=== PATIENT | male | born 1965 | race Caucasian/White ===

== ENCOUNTER 2024-10-07 13:48 | Emergency (ER) | payer MEDICARE, SELFPAY ==
[2024-10-07 13:50] VITALS: BP 152/83
[2024-10-07 14:12] LABS: % Basophils 0.8 % (0-2); % Eosinophils 9.1 % (0-6); % Immature Granulocytes 0.3 % (0-0.5); % Lymphocytes 11.8 % (20.5-51.1); % Monocytes 9.3 % (1.7-9.3); % Neutrophils 68.7 % (42.2-75.2); Absolute Basophils 0.1 10^3/uL (0-0.2); Absolute Eosinophils 0.7 10^3/uL (0-0.7); Absolute Lymphocytes 0.9 10^3/uL (1.2-3.4); Absolute Monocytes 0.7 10^3/uL (0.1-0.6); Absolute Neutrophils 5.1 10^3/uL (1.4-6.5); Hematocrit 42.4 % (39.0-52.0); Hemoglobin 14.8 g/dL (13.0-18.0); Mean Corp Hgb Conc. 34.9 g/dL (33.0-37.0); Mean Corpuscular Hgb 29.9 pg (27.0-31.0); Mean Corpuscular Volume 85.7 fL (80.0-94.0); Mean Platelet Volume 8.5 fL (7.4-10.4); Nucleated Red Blood Cells % 0 % (-); Platelet Count 297 10^3/uL (130-400); Red Blood Cell Count 4.95 10^6/uL (4.70-6.10); Red Cell Dist. Width 12.2 % (11.5-14.5); White Blood Cell Count 7.4 10^3/uL (4.8-10.8)
[2024-10-07 14:22] LABS: ALT (SGPT) 18 U/L (0-50); AST (SGOT) 25 U/L (17-59); Albumin 3.9 g/dl (3.5-5.0); Alkaline Phosphatase 63 U/L (38-126); Blood Urea Nitrogen 7 mg/dl (9-20); Calcium 8.6 mg/dl (8.4-10.2); Carbon Dioxide 22 mmol/L (22-30); Chloride 109 mmol/L (98-107); Glucose 153 mg/dl (70-99); Potassium 3.9 mmol/L (3.5-5.1); Sodium 138 mmol/L (135-145); Total Bilirubin 0.5 mg/dl (0.2-1.3); Total Protein 6.5 g/dl (6.3-8.2); eGFR > 60.00
[2024-10-07 14:24] LABS: COVID-19 Antigen Negative (Negative)
[2024-10-07 15:26] VITALS: BP 125/77
[2024-10-07 16:30] VITALS: BP 137/79
[2024-10-07 16:36] VITALS: BMI 23.8
[2024-10-07 17:00] VITALS: BP 144/85
--- NOTE | 2024-10-07 17:32 | ED.GENMED ---
History of Present Illness
General
Chief Complaint: Cold/Flu/URI Symptoms
Source: patient
Exam Limitations: none
Time Seen by Provider: 10/07/24 17:12
History of Present Illness
History of Present Illness:
See MDM
Past History
Past History
ED Past Medical History: None
ED Past Surgical History: Other (Rhinoplasty)
Social History
Tobacco: Smoker (One pack a day)
Alcohol: None
Drug: None
Personal:
Living: with family
Phy Exam
Physical Exam
Physical Exam:
See MDM
Course
Orders/Labs/Results
Orders:
Orders
10/07/24 14:00
COVID-19 Antigen Urgent
Source: Nasal Swab
Complete Blood Count/With Diff Urgent
Comprehensive Metabolic Panel Urgent
Influenza A+B Rapid Molecular Urgent
REYNALDO Source: Nasal Swab
Specimen Description:
10/07/24 17:30
0.9% Sodium Chloride 1000 ml [Nss] 1,000 ml IV BOLUS
Dexamethasone Sod Phosphate [Decadron] 10 mg IV NOW STA
Ipratropium/Albuterol Sulfate [Duoneb] 3 ml INH R NOW STA
10/07/24 17:31
CR Chest - 2 Views Urgent
Comment:
Reason For Exam: Cough
10/07/24 17:34
Electrocardiogram (*1) Urgent
Reason for Study: Shortness of Breath
EKG- Treatment ONCE
10/07/24 17:41
Troponin I Urgent
Abnormal Lab Results
10/07/24
14:00
Absolute Lymphs (auto) 0.9 L 10^3/uL
(1.2-3.4)
Absolute Monos (auto) 0.7 H 10^3/uL
(0.1-0.6)
Lymphocytes % 11.8 L %
(20.5-51.1)
Eosinophils % 9.1 H %
(0-6)
Chloride 109 H mmol/L
(98-107)
BUN 7 L mg/dl
(9-20)
Creatinine 0.6 L mg/dL
(0.7-1.3)
Glucose 153 H mg/dl
(70-99)
10/07/24 14:00
10/07/24 14:00
Vital Signs
Initial and Last Documented VS:
Initial Vital Signs
Temp Pulse Resp BP Pulse Ox
98.4 F 69 16 152/83 96
10/07/24 13:50 10/07/24 13:50 10/07/24 13:50 10/07/24 13:50 10/07/24 13:50
Last Documented Vital Signs
Temp Pulse Resp BP Pulse Ox
98.3 F 59 21 144/85 97
10/07/24 15:26 10/07/24 17:45 10/07/24 17:45 10/07/24 17:00 10/07/24 17:45
MDM/Problems Addressed
Differential Diagnosis Includes:
HPI and MDM Narrative:
59-year-old male presenting for evaluation of cough and congestion. Patient started taking leftover amoxicillin when he noticed pain and swelling on one of his teeth. After he developed his symptoms of diarrhea and chills, he thought it could be
related to amoxicillin. However, patient has had amoxicillin in the past with no side effects. Family members at bedside had bronchitis-like symptoms recently. On exam, patient does have bronchospastic cough. His abdomen is soft and nontender.
We discussed that he likely has an infected tooth and an underlying viral syndrome. Family is also questioning whether this could be undiagnosed COPD. It certainly could be given his smoking history.
Will obtain chest x-ray to look for any evidence of pneumonia. Will provide IV fluids for dehydration.
Physical exam
General: Well appearing and non-toxic
HEENT: protecting airway. Mild swelling to gumline of left upper incisor
Neck: appears supple
CV: No evidence of cyanosis. Regular rate and rhythm
Resp: No accessory muscle use. Bronchospasm and mild wheeze noted
Abd: Non-distended. Soft and nontender
Extremities: No deformities. No leg edema
Neuro: alert
Psych: Normal affect
Skin: Intact
Problems Addressed including Acute and Chronic Conditions affecting care:
1. Dental infection
Acuity: acute
Prognosis: stable
Details: Will prescribe amoxicillin and discussed the importance of dental follow-up
2. Bronchitis
Acuity: acute
Prognosis: stable
Details: Will start steroids and DuoNeb
Updates
Chest x-ray clear. On reassessment, patient feeling better. Will write for albuterol inhaler and steroids discussed return precautions
Differential Diagnosis (but not limited to): Pneumonia, bronchitis, dental infection
Testing considered: Stool culture. Will consider if patient can give stool sample
Drug therapy (if applicable): OTC meds, please see d/c instruction regarding Rx drugs
Amount and/or Complexity of Data Reviewed
Clinical info obtained from: Patient and
External data reviewed: N/A
Labs I independently reviewed (but not limited to): White blood cell count normal
Radiology: x-ray independently reviewed: Chest x-ray clear
Pulse Ox: not hypoxic
EKG independently reviewed: sinus bradycardia, normal axis, no STEMI
Deployment Specialist: Sinus rhythm
Critical Care: N/A
Risk of Complication:
Social Determinants of health: Good social support
Discussed with other providers: N/A
Escalation of Care includes Admit/Obs: After being observed in the Emergency Department, pt stable for discharge.
Occasional wrong word or 'sound a like' substitutions may have occurred due to the inherent limitations of voice recognition software. Read the chart carefully and recognize, using context, where substitutions have occurred.
*Pulse Oximetry
SaO2: 95
Oxygen Mode of Delivery: Room air
Patient hypoxic: no
*Critical Care Note
Total Time (30-74mins, 75-104mins- exclusive of procedures): Not Applicable
ED Attending Note
-
Portions of this chart may have been created with voice recognition software.� Occasional wrong word or��sound alike� substitutions may have occurred due to the inherent limitations of voice recognition software.
Discharge Plan
Departure
Patient Disposition: Home (Routine Discharge)
Date of Disposition: 10/07/24
Time of Disposition: 19:00
Patient with high blood pressure during this ER visit?: Yes
Discharge Problem:
Acute bronchitis
Instructions: Acute Bronchitis, Adult (DC), BLOOD PRESSURE
Prescriptions:
New
prednisone 20 mg tablet
40 mg PO DAILY Qty: 10 0RF
albuterol sulfate 90 mcg/actuation HFA aerosol inhaler
2 puff inhalation Q6H PRN (Reason: shortness of breath or wheezing) Qty: 8.5 0RF
amoxicillin 500 mg capsule
500 mg PO BID Qty: 14 0RF
No Action
No Current Medications
ciprofloxacin HCl [Cipro] 500 MG tablet
500 mg PO BID Qty: 20 0RF
Referrals:
Susan Zavaleta CRNP [Family Provider, Family Practice]
Activity Restrictions/Additional Instructions:
Please return for any worsening symptoms.
You may return at any time if you have further concerns.
Please follow up with your doctor at the first available appointment, preferably this week.
You may start the steroid prescription tomorrow.
Please follow-up with a dentist.
Thank you for choosing [facility].
Interventions
Interventions:
*Risk Screen - Suicide Last Done: 10/07/24 16:36
*General Assessment Last Done: 10/07/24 16:36
*Neglect/Abuse Screening Last Done: 10/07/24 16:27
*ED- Fall Risk Assessment Last Done: 10/07/24 16:36
*ED COVID-19 Vaccine History Last Done: 10/07/24 16:36
ED- Pulmonary Assessment Last Done: 10/07/24 16:36
Discharge Date and Time
Print Language: WELSH
[2024-10-07] MEDS: NSS 1000 IV (17:42)
[2024-10-07] MEDS: DECADRON 10 MG IV (17:43)
[2024-10-07] MEDS: DUONEB 3 ML INH (17:43)
[2024-10-07 18:21] LABS: Troponin I < 0.012 ng/ml
== END 2024-10-07 19:13 | disposition home or self-care (01) ==
LOC: EMR 13:48
PROVIDERS: Emergency Medicine; EMERGENCY PHYSICIAN Student in an Organized Health Care Education/Training Program; FAMILY PHYSICIAN Registered Nurse
DX: J20.9 Acute bronchitis, unspecified (principal); F17.210 Nicotine dependence, cigarettes, uncomplicated
CPT/HCPCS: 99283; 94640; 96374; 96361; 71046; 80053; 84484; 85025; 87502; 87811; 93005